=== PATIENT | female | born 1940 | race Caucasian/White ===

== ENCOUNTER 2018-08-02 08:53 | Outpatient (CLI) | payer MEDICARE, BC ==
--- NOTE | 2018-08-02 14:21 | PET ---
PET CT FROM SKULL BASE THROUGH MID THIGHS: INDICATION: Bilateral pulmonary nodules. COMPARISON: CT of the thorax from [facility] dated 07/17/18. TECHNIQUE: PET CT images were obtained from the skull base through the mid thighs following the IV introduction of a 10.9 mCi of [id number] IV. CT images were obtained for attenuation correction purposes only. FINDINGS: The biodistribution for the examination appears acceptable. Head/Neck: No hypermetabolic lymphadenopathy or mass is identified. Thorax: There is a 1.4 cm nodule with adjacent linear scarring in the right upper lobe without associated hyp ermetabolic activity. The peak SUV uptake is 0.45. There is a conglomeration of reticulonodularity with a more dominant nodule seen within the right mid dle lobe measuring 1.1 cm with a peak SUV uptake of 4.15 and mean value of 2.25. There is a more nodular pulmonary nodule within the left lower lobe adjacent to the left heart border measuring 1.8 cm with a peak SUV uptake of 2.13 and mean uptake of 1.79. There is a small focus of reticulonodularity within the superior segment of the left lower lobe with mild increased metabolic activity of 1.1 and a mean value of 0.83. No hypermetabolic lymphadenopathy is evident. Abdomen/Pelvis: No hypermetabolic mass or lymphadenopathy is evident. Skin/Osseous Structures: No hypermetabolic skin or osseous lesion is evident. IMPRESSION: Abnormal PET CT: 1. There is a hypermetabolic pulmonary nodule within the right middle lobe. The dominant nodule in t he grouping measures 1.1 cm, but is surrounded by additional areas of reticulonodularity which are no t as hypermetabolic. There are additional mild metabolically active nodules within the left lower lob e. The more dominant nodule within the anterior aspect of the left lower lobe appears to be solid. Th ere are additional reticulonodularities seen within the left lower lobe. Overall, the findings can be related to metastatic disease from potentially a primary lung malignancy, possibly being the lesion seen within the right middle lobe. Alternatively, this could be related to an atypical infectious pro cess. Recommendations alternatives would include a short-term follow-up CT evaluation in 4-6 weeks to docum ent resolution or decrease in size of the pulmonary nodularities with therapy, or potentially a CT gu ided biopsy of the more suspicious pulmonary nodule within the right middle lobe. This would be percu taneously assessable for sampling by imaging guidance. 2. No hypermetabolic activity seen within the head, neck, abdomen, pelvis, skin, or osseous regions to suggest distant metastatic disease. POS: [id number]
== END 2018-08-02 08:54 | disposition home or self-care (01) ==
LOC: PET 08:53
PROVIDERS: ATTEND Internal Medicine Pulmonary Disease
DX: R91.8 Other nonspecific abnormal finding of lung field (principal)
CPT/HCPCS: 78815; A9552